=== PATIENT | female | born 1970 | race Caucasian/White ===

== ENCOUNTER 2019-11-11 00:46 | Outpatient (CLI) | payer OTHER, SELFPAY ==
[2019-11-11 19:34] LABS: SARS-CoV-2 RNA PCR Negative
== END 2019-11-11 00:47 | disposition home or self-care (01) ==
LOC: ANHCOVIDDT 00:47
PROVIDERS: PCP Family Medicine; Visit Provider Internal Medicine Gastroenterology
DX: Z01.818 Encounter for other preprocedural examination (principal); Z11.59 Encounter for screening for other viral diseases
CPT/HCPCS: 87635; C9803; U0003

== ENCOUNTER 2019-11-13 02:02 | Day surgery (SDC) | payer OTHER, SELFPAY ==
[2019-11-05 11:40] VITALS: BMI 35.9
--- NOTE | 2019-11-11 14:58 | WPDANESEPPF ---
Anes - Initial Pre Proc Eval Procedure: Operation Date: 11/13/19 11:00 Proposed Procedures p Screening Colonoscopy - Leo Corral MD Date/Time: 11/11/19 14:58 Surgeon: Leo Corral MD Pre Op Diagnosis: Neoplasm Screening Patient Data Age: 49 Gender: F Height: 1.6 m Weight: 92 kg Allergies Allergy/AdvReac Type Severity Reaction Status Date / Time No Known Allergies Allergy Verified 11/13/19 10:18 Home Medications Medication Instructions Recorded Confirmed Type atorvastatin 10 mg tablet 10 mg PO DAILY 05/13/19 11/05/19 History escitalopram oxalate 20 mg tablet 20 mg PO DAILY #90 tablet 09/16/19 11/05/19 Rx aspirin [Adult Low Dose Aspirin] 81 mg PO DAILY 11/05/19 11/05/19 History oxybutynin chloride 10 mg 10 mg PO DAILY #90 tablet 11/11/19 Rx tablet,extended release 24 hr peg 3350-electrolytes 236 240 ml PO Q10M #4000 ml 11/12/19 Rx gram-22.74 gram-6.74 gram-5.86 gram solution Patient hx anesthesia problems: none Family hx anesthesia problems: none PMFSH Past Medical History Medical History (Updated 11/11/19 @ 14:58 by Ren Kirkpatrick DO) Anxiety Depression GERD (gastroesophageal reflux disease) LISETTE (obstructive sleep apnea) Surgical History Surgical History (Updated 11/11/19 @ 14:58 by Ren Kirkpatrick DO) History of x2 Social History Social History Smoking status: Smoker, status unknown Second hand tobacco smoke exposure: No Alcohol intake: current Anes - Eval Final PreProcedure Day of Procedure 11/11/19 14:58 Patient weight: obese Heart: regular rate and rhythm Lungs: clear to auscultation and normal air movement Airway: Mallampati scale class II Neurological: alert and oriented Last oral intake: >/= 8 hours ASA classification: III Emergent: no Anesthetic plan: proceed Anesthesia type and monitoring: general GIVS and standard monitoring Informed Consent: The patient's anesthetic plan and its attendant risks and benefits were discussed with the patient/family/POA. Questions were solicited and answers provided to the satisfaction of the patient/family/POA.
[2019-11-13 10:20] VITALS: BP 118/67; PULSE 80; RESP 18; TEMP 36.4; O2SAT 97; BMI 38.7
[2019-11-13] MEDS: LACTATED RINGERS 1,000 ML 150 ML IV CONT (10:50)
--- NOTE | 2019-11-13 10:51 | PM.HPGS ---
History of Present Illness History of Present Illness Consent: Risks, benefits, and alternatives have been discussed and questions answered. Patient agrees to proceed with procedure. Chief complaint: Neoplasm Screening Narrative: Tri Tomas is a 49 year old female here for first screening colonoscopy Review of Systems Constitutional: Constitutional: Denies headache(s) and Denies weakness Eyes: Eyes: Denies blurry vision ENT: Reports Normal hearing present, Denies headache(s) and Denies neck pain Cardiovascular: Cardiovascular: Denies chest pain and Denies dyspnea Respiratory: Respiratory: Denies dyspnea Gastrointestinal: Gastrointestinal: Reports no additional gastrointestinal complaints Genitourinary: Genitourinary: Denies dysuria Musculoskeletal: Musculoskeletal: Denies neck pain Integumentary/Breasts: Skin/Breast: Denies dry skin Neurologic: Reports Normal hearing present, Denies headache(s) and Denies weakness Psychiatric: Psychiatric: Denies anxiety Endocrine: Endocrine: Denies change in body appearance Hematologic/Lymphatic: Hematologic/Lymphatic: Denies easy bleeding Allergic/Immunologic: Allergic/Immunologic: Denies urticaria PMFSH Past Medical History Medical History (Updated 11/13/19 @ 10:51 by Leo Corral MD) Anxiety Colon cancer screening Depression GERD (gastroesophageal reflux disease) LISETTE (obstructive sleep apnea) Surgical History Surgical History (Updated 11/11/19 @ 14:58 by Ren Kirkpatrick DO) History of x2 Social History Social History Smoking status: Smoker, status unknown Second hand tobacco smoke exposure: No Alcohol intake: current Meds Home Medications and Allergies Home Medications Medication Instructions Recorded Confirmed Type atorvastatin 10 mg tablet 10 mg PO DAILY 05/13/19 11/05/19 History escitalopram oxalate 20 mg tablet 20 mg PO DAILY #90 tablet 09/16/19 11/05/19 Rx aspirin [Adult Low Dose Aspirin] 81 mg PO DAILY 11/05/19 11/05/19 History oxybutynin chloride 10 mg 10 mg PO DAILY #90 tablet 11/11/19 Rx tablet,extended release 24 hr peg 3350-electrolytes 236 240 ml PO Q10M #4000 ml 11/12/19 Rx gram-22.74 gram-6.74 gram-5.86 gram solution Allergies Allergy/AdvReac Type Severity Reaction Status Date / Time No Known Allergies Allergy Verified 11/13/19 10:18 Vital Signs Vital Signs - 24 hr 11/13/19 10:20 Temperature 97.6 F Pulse Rate 80 Respiratory Rate 18 Blood Pressure 118/67 Pulse Oximetry 97 Exam Const: General: comfortable and no acute distress HENMT: General nose exam: Normal nares present Eyes: General: appearance normal, both eyes and all related structures Neck: Neck: no JVD Resp: Auscultation: clear to auscultation bilaterally Cardio: Rate: regular rate Rhythm: regular rhythm GI: Inspection: non-distended GI Palp: Yes Soft to palpation Skin: General skin exam: normal color Neuro: General: gait normal Speech: normal speech Extrem: General: normal to inspection Psych: Mental Status: mental status grossly normal Assessment and Plan Assessment and plan (1) Colon cancer screening: Code(s): Z12.11 - Encounter for screening for malignant neoplasm of colon Status: Acute Assessment and Plan: will proceed with colonoscopy (2) LISETTE (obstructive sleep apnea): Code(s): G47.33 - Obstructive sleep apnea (adult) (pediatric) Status: Acute
[2019-11-13 11:11] VITALS: BP 93/61; PULSE 70; RESP 18; O2SAT 98
[2019-11-13 11:21] VITALS: BP 100/63; PULSE 72; RESP 18; O2SAT 99
[2019-11-13 11:31] VITALS: BP 112/65; PULSE 74; RESP 20; O2SAT 100
== END 2019-11-13 12:07 | disposition home or self-care (01) ==
PROVIDERS: PCP Family Medicine; Visit Provider Internal Medicine Gastroenterology
PROC: 0DJD8ZZ Inspection of Lower Intestinal Tract, Via Natural or Artificial Opening Endoscopic (ICD-10-PCS; CPT 45378; principal; 2019-11-13 11:00)
DX: Z12.11 Encounter for screening for malignant neoplasm of colon (principal); D12.2 Benign neoplasm of ascending colon; D12.5 Benign neoplasm of sigmoid colon; K64.8 Other hemorrhoids; F41.9 Anxiety disorder, unspecified; F32.9 Major depressive disorder, single episode, unspecified; K21.9 Gastro-esophageal reflux disease without esophagitis; G47.33 Obstructive sleep apnea (adult) (pediatric); Z79.82 Long term (current) use of aspirin; Z79.899 Other long term (current) drug therapy
CPT/HCPCS: 45385; 88305; J2704; J7120

== ENCOUNTER → 2020-04-14 15:46 | Outpatient (CLI) | payer BC, SELFPAY ==
--- NOTE | ~2020-04-14 | XR_ITS ---
EXAMINATION: XR chest 2V DATE: 04/14/2020 16:03 INDICATION: Productive cough and shortness of breath TECHNIQUE: PA and lateral views of the chest were obtained. COMPARISON: Chest radiograph dated 12/04/19 FINDINGS: The lungs remain clear with no focal airspace opacities, pulmonary edema, pleural effusion or pneumot horax. The cardiomediastinal silhouette is normal. Mild thoracic spondylosis. IMPRESSION: 1. No acute cardiopulmonary disease. Reviewed, dictated and finalized at location B. EGE ATHLETE
== END ==
PROVIDERS: PCP Family Medicine; Visit Provider Family Medicine
DX: R05 Cough (principal)
CPT/HCPCS: 71046

== ENCOUNTER → 2020-06-24 10:55 | Outpatient (CLI) | payer BC, SELFPAY ==
--- NOTE | ~2020-06-24 | MM_ITS ---
EXAMINATION: MM screening [facility] w ruddy HISTORY: Screening mammogram TECHNIQUE: Craniocaudal and mediolateral oblique 3-D tomosynthesis images were obtained and synthetic 2-D images were generated. CAD analysis was submitted and interpreted. COMPARISON: 01/30/2019, 12/28/2017, 11/29/2016 bilateral digital screening mammogram examinations BREAST PARENCHYMAL COMPOSITION: There are scattered areas of fibroglandular density. FINDINGS: There is no evidence of suspicious mass, calcification, or architectural distortion to sugg est malignancy in either breast. There has been no suspicious interval change. IMPRESSION: 1. No mammographic evidence of malignancy. 2. Recommend routine screening mammography in one year. BI-RADS Category 1: Negative Reviewed, dictated and finalized at location A.
== END ==
PROVIDERS: Visit Provider Nurse Practitioner
DX: Z12.31 Encounter for screening mammogram for malignant neoplasm of breast (principal)
CPT/HCPCS: 77063; 77067

== ENCOUNTER 2021-01-01 12:13 | Outpatient (CLI) | payer BC, SELFPAY ==
--- NOTE | ~2021-01-01 | CT_ITS ---
EXAMINATION: CT abdomen pelvis wo con DATE: 01/01/2021 12:59 INDICATION: Hematuria. Left flank pain. TECHNIQUE: Computed tomography (CT) of the abdomen and pelvis was performed without intravenous contr ast. Automated exposure control and iterative reconstruction technique were employed. Exam dose: 435 .42 mGy-cm total exam DLP. COMPARISON: 01/01/2021 KUB is not available at this time 12/30/2015 CT abdomen with IV contrast material FINDINGS: The lung bases are clear of infiltrate or consolidation or mass lesion. Normal heart size. No pericardial or pleural effusion. The liver, spleen, pancreas, gallbladder, bile ducts, pancreatic duct are unremarkable. Normal morpho logy of the adrenal glands. No renal mass lesion is evident on this limited noncontrast examination. No urinary tract calculus or hydroureteronephrosis is evident. The urinary bladder is unremarkable. Uterus measures 12 cm vertica l dimension, up to 5.5 cm maximal AP dimension. Normal caliber of the abdominal aorta. No intraperitoneal or retroperitoneal or pelvic mass lesion or adenopathy or ascites. Normal appendix. No bowel obstruction, bowel wall thickening, pneumatosis or intraperitoneal free air . No significant abnormality of the skeletal structures except for bilateral hip osteoarthritis. IMPRESSION: No urinary tract calculus or hydroureteronephrosis Normal appendix Uterine enlargement Reviewed, dictated and finalized at Location A. Reviewed, dictated and finalized at location A.
--- NOTE | ~2021-01-01 | XR_ITS ---
EXAMINATION: XR abdomen/kub 1V DATE: 01/01/2021 13:07 INDICATION: Unspecified abdominal pain. TECHNIQUE: A supine view of the abdomen on 2 radiographs was obtained. COMPARISON: CT abdomen and pelvis 01/01/2021 FINDINGS: There are no dilated loops of bowel. There is a moderate volume of stool in the colon. Ther e is a staple line in the stomach. There are phleboliths in the pelvis. IMPRESSION: 1. Nonobstructive bowel gas pattern. Reviewed, dictated and finalized at location A.
[2021-01-01 12:54] LABS: Basophils Absolute Auto 0.1 K/mm3 (0.0-0.1); Eosinophils Absolute Auto 0.2 K/mm3 (0-0.3); Eosinophils Percent Auto 2.4 % (0-4.4); Hematocrit 43.5 % (37.0-47.0); Hemoglobin 14.5 g/dL (12.0-15.0); Immature Granulocyte Absolute 0.06 K/mm3 (0.00-0.031); Immature Granulocyte Percent A 0.8 % (0-0.5); Lymphocytes Absolute Auto 2.65 K/mm3 (0.9-3.2); Lymphocytes Percent Auto 33.2 % (18.3-44.2); Mean Corpuscular HGB Conc 33.3 g/dl (32-36); Mean Corpuscular Hemoglobin 31.4 pg (26-34); Mean Corpuscular Volume 94.2 fl (80-100); Mean Platelet Volume 9.8 fl (7.4-10.4); Monocytes Absolute Auto 0.6 K/mm3 (0.1-0.6); Monocytes Percent Auto 7.4 % (2.6-8.5); Neutrophils Absolute Auto 4.4 K/mm3 (1.3-6.7); Neutrophils Percent Auto 55.2 % (45.5-73.1); Platelet Count Result 232 k/mm3 (150-375); Red Blood Count 4.62 M/mm3 (4.2-5.4); Red Cell Distribution Width 13.2 % (11.5-14.5)
[2021-01-01 13:53] LABS: Anion Gap 8 mmol/L (8-16); Blood Urea Nitrogen 8 mg/dL (7-17); Carbon Dioxide 26 mmol/L (22-30); Chloride 106 mmol/L (98-107); Estimated Glomerular Filt Rate > 60; Glucose 167 mg/dL (65-110); Potassium 4.1 mmol/L (3.4-5.0); Sodium 140 mmol/L (137-145)
== END 2021-01-01 12:14 | disposition home or self-care (01) ==
PROVIDERS: PCP Family Medicine; Visit Provider Nurse Practitioner Family
DX: R10.9 Unspecified abdominal pain (principal); R31.29 Other microscopic hematuria; R31.9 Hematuria, unspecified
CPT/HCPCS: 36415; 74018; 74176; 80048; 85025

== ENCOUNTER → 2021-01-29 10:26 | Outpatient (CLI) | payer BC, SELFPAY ==
--- NOTE | ~2021-01-29 | US_ITS ---
EXAMINATION: US transvaginal DATE: 01/29/2021 11:08 INDICATION: Pelvic pain Comparison:11/29/2016 TECHNIQUE: Multiple endovaginal sonographic images of the pelvis performed. FINDINGS: The uterus measures 9.6 x 4.8 x 6.3 cm. The endometrial complex measures 3 mm. The right ovary is not visualized. Left ovary measures 2.9 x 2.2 x 2.2 cm. There are follicular lopez es of the left ovary. There is no free fluid in the pelvis. There are no abnormal masses seen on either side. IMPRESSION: 1. Unremarkable pelvic ultrasound Reviewed, dictated and finalized at location A. ICAL CARE NURSE PRACTITIONER
== END ==
PROVIDERS: PCP Family Medicine; Visit Provider Obstetrics & Gynecology Gynecology
DX: R10.2 Pelvic and perineal pain (principal)
CPT/HCPCS: 76830

== ENCOUNTER → 2021-05-06 10:09 | Outpatient (CLI) | payer BC, SELFPAY ==
--- NOTE | ~2021-05-06 | XR_ITS ---
XR chest 2V DATE: 05/06/2021 10:21 INDICATION: Shortness of breath, chest tightness. Covid infection 1 month ago. TECHNIQUE: 2 views COMPARISON: 12/04/2019 PA chest FINDINGS: Normal heart size. No hilar or mediastinal enlargement. No pulmonary infiltrate or consolid ation, pleural effusion or pulmonary vascular congestion or pneumothorax. IMPRESSION: No active cardiopulmonary disease Reviewed, dictated and finalized at location B. E LEAD
== END ==
PROVIDERS: PCP Family Medicine; Visit Provider Nurse Practitioner Family
DX: R06.02 Shortness of breath (principal)
CPT/HCPCS: 71046

== ENCOUNTER → 2021-05-17 12:57 | Outpatient (CLI) | payer BC, SELFPAY ==
--- NOTE | ~2021-05-17 | CT_ITS ---
EXAMINATION: CT diagnostic chest wo con EXAM DATE: 05/17/2021 13:22 INDICATION: R06.02 - Shortness of breath. History of COVID March 2021 TECHNIQUE: Spiral CT of the chest without contrast. Axial, coronal and sagittal images of the chest were reviewed. Coronal maximum intensity pixel images of chest reviewed. The dose-length product ( DLP) for this examination was 556.69 mGy-cm. The exposure was tailored according to patient size (au to mA exposure control), and iterative reconstruction (ASIR) was used as additional dose reduction te chnique. There is no prior study for comparison. FINDINGS: The lungs are clear. There are no pleural or pericardial effusions. In the dependent a spect of the galilea there are several septations, and some dependent more focal opacity most likely m ucous. There is no mediastinal, hilar or axillary lymphadenopathy. There is no pneumothorax. Hea rt normal in size. No evidence of coronary arterial calcification. Upper abdomen is unremarkable. There is mild thoracic spondylosis without osteoblastic or osteolytic lesions identified. IMPRESSION: Carinal dependent opacity and couple of septations probably transient mucous. Exam otherw ise unremarkable. Recommend 3 month follow-up chest CT. Reviewed, dictated and finalized at location G. FIGHTER IMPRESSION: Carinal dependent opacity and couple of septations probably transie nt mucous. Exam otherwise unremarkable. Recommend 3 month follow-up chest CT.
== END ==
PROVIDERS: Visit Provider Nurse Practitioner Family
DX: R06.02 Shortness of breath (principal); R53.83 Other fatigue; Z72.0 Tobacco use; Z68.38 Body mass index [BMI] 38.0-38.9, adult
CPT/HCPCS: 71250

== ENCOUNTER → 2021-10-04 10:21 | Outpatient (CLI) | payer BC, SELFPAY ==
--- NOTE | ~2021-10-04 | CT_ITS ---
EXAMINATION:CT diagnostic chest wo con DATE: 10/04/2021 10:33 INDICATION: Tracheal mass. TECHNIQUE: Computed tomography (CT) of the chest was performed without intravenous contrast. Automate d exposure control and iterative reconstruction technique were employed. The dose-length product (DLP ) was 122.92 mGy-cm. COMPARISON: Chest CT 05/17/2021 FINDINGS: There is no pneumonia or pleural effusion. There is trace mucus in the trachea with improve ment from 05/17/2021. The heart size is normal. No pericardial effusion. There are surgical changes of the stomach. There is mild thoracic spondylosis. IMPRESSION: 1. No abnormal tracheal mass. Reviewed, dictated and finalized at location A.
== END ==
PROVIDERS: PCP Family Medicine; Visit Provider Nurse Practitioner Family
DX: R91.8 Other nonspecific abnormal finding of lung field (principal); M47.814 Spondylosis without myelopathy or radiculopathy, thoracic region
CPT/HCPCS: 71250

== ENCOUNTER → 2021-10-26 09:37 | Outpatient (CLI) | payer BC, SELFPAY ==
--- NOTE | ~2021-10-26 | MM_ITS ---
EXAMINATION: MM screening [facility] BI w ruddy HISTORY: Screening mammogram TECHNIQUE: Craniocaudal and mediolateral oblique 3-D tomosynthesis images were obtained and synthetic 2-D images were generated. CAD analysis was submitted and interpreted. COMPARISON: 06/24/2020, 01/30/2019, 12/28/2017 BREAST PARENCHYMAL COMPOSITION: There are scattered areas of fibroglandular density. FINDINGS: There is no suspicious mass, calcification, or architectural distortion to suggest malignan cy in either breast. There has been no suspicious interval change. IMPRESSION: 1. No mammographic evidence of malignancy. 2. Recommend routine screening mammography in one year. BI-RADS Category 1: Negative Reviewed, dictated and finalized at location A.
== END ==
PROVIDERS: PCP Family Medicine; Visit Provider Obstetrics & Gynecology Gynecology
DX: Z12.31 Encounter for screening mammogram for malignant neoplasm of breast (principal)
CPT/HCPCS: 77063; 77067

== ENCOUNTER → 2022-10-28 08:18 | Outpatient (CLI) | payer BC, SELFPAY ==
--- NOTE | ~2022-10-28 | XR_ITS ---
Clinical Indication: Cough PA and lateral views of the chest: Comparison: 05/06/2021 Findings: The lungs are clear, without evidence of focal consolidation or pleural effusion. Cardiome diastinal silhouette is within normal limits. Bones and soft tissues are unremarkable. Impression: Normal chest. Reviewed, dictated and finalized at location . Impression: Normal chest.
== END ==
PROVIDERS: PCP Nurse Practitioner Family; Visit Provider Nurse Practitioner Family
DX: R05.9 Cough, unspecified (principal)
CPT/HCPCS: 71046

== ENCOUNTER → 2022-11-14 12:30 | Outpatient (CLI) | payer BC, SELFPAY ==
--- NOTE | ~2022-11-14 | MM_ITS ---
EXAMINATION: MM screening [facility] BI w ruddy HISTORY: Screening mammogram TECHNIQUE: Craniocaudal and mediolateral oblique 3-D tomosynthesis images were obtained and synthetic 2-D images were generated. CAD analysis was submitted and interpreted. COMPARISON: 10/26/2021, 06/24/2020, 01/30/2019 BREAST PARENCHYMAL COMPOSITION: There are scattered areas of fibroglandular density. FINDINGS: No suspicious mass, calcification, or architectural distortion are identified in either julio ast to suggest malignancy. There has been no suspicious interval change. IMPRESSION: 1. No mammographic evidence of malignancy. 2. Recommend routine screening mammography in one year. BI-RADS Category 1: Negative Reviewed, dictated and finalized at location A.
== END ==
PROVIDERS: PCP Obstetrics & Gynecology Gynecology; Visit Provider Obstetrics & Gynecology Gynecology
DX: Z12.31 Encounter for screening mammogram for malignant neoplasm of breast (principal)
CPT/HCPCS: 77063; 77067

== ENCOUNTER 2023-01-18 10:29 | Outpatient (CLI) | payer BC, SELFPAY ==
--- NOTE | ~2023-01-18 | DEXA_ITS ---
Bone Density Report Name: WILLIAMS DEVINE Age: 52 Sex: Female Ethnicity: White Date of : 1970 Indication: postmenopausal; screening for osteoporosis; Referring Provider: Layo, Savanna Study: Bone densitometry was performed. Exam Date: January 18, 2023 Accession number: [id number] Bone Density: Region BMD T-score Z-score Classification AP Spine(L1-L4) 1.144 0.9 1.9 Normal Femoral Neck (Left) 0.835 -0.1 0.9 Normal Total Hip (Left) 0.930 -0.1 0.6 Normal Femoral Neck (Right) 0.829 -0.2 0.8 Normal Total Hip (Right) 0.944 0.0 0.7 Normal Femoral Neck Mean 0.832 -0.2 0.9 Normal Total Hip Mean 0.937 0.0 0.6 Normal World Health Organization criteria for BMD impression classify patients as: Normal (T-score at or above -1.0), Osteopenia (T-score between -1.0 and -2.5), or Osteoporosis (T-score at or below -2.5). 10-year Fracture Risk: FRAX not reported because: All T-scores for Spine Total, Hip Total, Femoral Neck at or above -1.0 Clinical Information Provided by Patient: Smokes Has used the following medications: Vitamin D Patient maximum height was 63 Menopause Age: 51 No regular weight bearing exercise Drinks caffeinated beverages Onset of menses at age 10 Number of children 2 Impression: The patient has normal bone mass. The patient has risk factors, including: smoking. Discussion: BONE DENSITY IS ABOVE THE MINIMUM DESIRABLE LEVEL AT ALL SKELETAL SITES TESTED. This patient?s bone mineral density is above the minimum desirable level (T-score -1.0 or better) at all sites measured. The patient should follow a healthful lifestyle (good nutrition with adequate calcium and vitamin D, and appropriate weight-bearing exercise). Follow-Up: Consider repeating this study in 5 years or sooner if there is some new clinical indication. Reported by: Dr. Darrian Bedolla on 01/18/2023 10:52:00 AM. Reviewed, dictated and finalized at location A. [facility]
== END 2023-01-18 10:30 | disposition home or self-care (01) ==
LOC: CHSIMG 10:31
PROVIDERS: PCP Family Medicine; Visit Provider Nurse Practitioner
DX: Z78.0 Asymptomatic menopausal state (principal)
CPT/HCPCS: 77080

== ENCOUNTER 2023-07-20 09:47 | Outpatient (CLI) | payer BC, SELFPAY ==
--- NOTE | ~2023-07-20 | CT_ITS ---
EXAMINATION: CT lung screening DATE: 07/20/2023 10:00 INDICATION: Personal history of nicotine TECHNIQUE: Computed tomography (CT) of the chest was performed without intravenous contrast. The dose -length product was 126.22 mGy-cm. Automated exposure control and iterative reconstruction technique were employed. COMPARISON: CT dated 10/04/2021 FINDINGS: Heart size normal. No thoracic lymphadenopathy. No significant pleural or pericardial effus ion. No focal soft tissue abnormality. Upper abdomen is unremarkable. No significant vascular abnorma lity. Mild thoracic spondylosis. No focal airspace consolidation. No pneumothorax. No suspicious pulm onary nodules or masses. IMPRESSION: 1. Lung-RADS category 1: Negative. Continue annual screening with noncontrast low-dose chest CT in 12 months. Reviewed, dictated and finalized at location B. IMPRESSION: 1. Lung-RADS category 1: Negative. Continue annual screening with noncontrast l ow-dose chest CT in 12 months.
== END 2023-07-20 09:48 ==
LOC: MICIMG 09:47
PROVIDERS: PCP Family Medicine; Visit Provider Nurse Practitioner Family
DX: Z12.2 Encounter for screening for malignant neoplasm of respiratory organs (principal); Z87.891 Personal history of nicotine dependence
CPT/HCPCS: 71271

== ENCOUNTER → 2023-07-21 08:58 | Outpatient (CLI) | payer BC, SELFPAY ==
--- NOTE | ~2023-07-21 | XR_ITS ---
XR shoulder LT min 2V 07/21/2023 09:13 Indication: Left shoulder pain Procedure: 5 views left shoulder Comparison: No prior studies for comparison. Findings: There is moderate polyarticular osteoarthritis of the left shoulder. No fracture, subluxati on or dislocation. Normal mineralization. No soft tissue abnormality. 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 Reviewed, dictated and finalized at location B. 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
== END ==
LOC: EXPTRAD 09:00
PROVIDERS: PCP Nurse Practitioner Family; Visit Provider Nurse Practitioner Family
DX: M25.612 Stiffness of left shoulder, not elsewhere classified (principal); M19.012 Primary osteoarthritis, left shoulder
CPT/HCPCS: 73030

== ENCOUNTER 2024-01-03 09:56 | Outpatient (CLI) | payer BC, SELFPAY ==
--- NOTE | ~2024-01-03 | MM_ITS ---
EXAMINATION: MM screening [facility] BI w ruddy HISTORY: Screening TECHNIQUE: Craniocaudal and mediolateral oblique 3-D tomosynthesis images were obtained and synthetic 2-D images were generated. CAD analysis was submitted and interpreted. COMPARISON: Comparison to multiple prior studies sequentially, with oldest reviewed study dated 11/29. BREAST PARENCHYMAL COMPOSITION: Not dense: There are scattered areas of fibroglandular density. FINDINGS: There is no evidence of suspicious mass, calcification, or architectural distortion to sugg est malignancy in either breast. There has been no suspicious interval change. IMPRESSION: 1. No mammographic evidence of malignancy. 2. Recommend routine screening mammography in one year. BI-RADS Category 1: Negative Reviewed, dictated and finalized at location B.
== END 2024-01-03 09:57 | disposition home or self-care (01) ==
PROVIDERS: PCP Family Medicine; Visit Provider Nurse Practitioner
DX: Z12.31 Encounter for screening mammogram for malignant neoplasm of breast (principal)
CPT/HCPCS: 77063; 77067

== ENCOUNTER → 2024-04-16 11:32 | Outpatient (CLI) | payer BC, SELFPAY ==
--- NOTE | ~2024-04-16 | XR_ITS ---
EXAMINATION: XR chest 2V 04/16/2024 13:05 INDICATION: Cough PROCEDURE: 2 view chest COMPARISON: Comparison to multiple prior studies sequentially, with oldest reviewed study dated 09/26. FINDINGS: The lungs are clear. The cardiomediastinal silhouette is within normal limits. There are no pleural effusions. There is no pneumothorax suspected. IMPRESSION: 1: NO ACUTE CARDIOPULMONARY DISEASE. Reviewed, dictated and finalized at location A. MENT MASON
--- OUTSIDE RECORDS SUMMARY | 2024-04-16 12:44 | XMS_ITS | Clinical Summary ---
Author Organization [facility] Address [address] [place] [address]. [place] [address] [place] [address] Care Team Providers Care Emr Specialist Name Role Phone Gunnar Madera MD Primary Care Provider [phone] Allergies No known active allergies Medications escitalopram 20 MG tablet Take 20 mg by mouth daily. Active oxybutynin XL 10 MG 24 hr tablet Take 10 mg by mouth daily. Active atorvastatin 10 MG tablet Take 10 mg by mouth nightly at bedtime. Active aspirin EC (ASPIRIN EC) 81 MG tablet Take 81 mg by mouth daily. Active omeprazole 20 MG capsule Take 20 mg by mouth daily. Active guaifenesin-cod eine 100-10 MG/5ML syrupIndication s:Cough Take 5 mLs by mouth every 4 (four) hours as needed for Cough. Indications: Cough Hold from taking this medication if feeling sleepy. When taking this medication, do not drink alcohol, operate heavy machinery or automobiles. 180 mL 0 Active Social History Tobacco Use Types Packs/Day Years Used Date Smoking Tobacco: Every Day Cigarettes Smokeless Tobacco: Never Alcohol Use Standard Drinks/Week Comments Yes 0 (1 standard drink = 0.6 oz pur e alcohol) Comments No Sex and Gender Information Value Date Recorded Sex Assigned at Not on file Legal Sex Female 6:23 PM CDT Gender Identity Not on file Sexual Orientation Not on file Last Filed Vital Signs Vital Sign Reading Time Taken Comments Blood Pressure 122/76 06/03/2019 9:15 AM CDT Pulse 77 06/03/2019 9:15 AM CDT Temperature 37.4 ??C (99.4 ??F) 06/03/2019 9:15 AM CD T Respiratory Rate 20 06/03/2019 9:15 AM CDT Oxygen Saturation 99% 06/03/2019 9:15 AM CDT Inhaled Oxygen Concentration - - Weight 95.3 kg (210 lb) 06/03/2019 9:15 AM CDT Height 160 cm (5' 3 ) 06/03/2019 9:15 AM CDT Body Mass Index 37.2 06/03/2019 9:15 AM CDT Plan of Treatment Health Maintenance Due Date Last Done Comments Cervical Cancer Screening Pa p Smear (Age 30 to 64) Every 3 Years 1968 Colorectal Cancer Screening Colonoscopy (10 Years) 1968 Annual Physical 07/02/1971 Pneumococcal Vaccine: Pediat rics (0 to 5 Years) and At-Risk Patients (6 to 64 Years) (1 of 2 - PCV) 1974 Hepatitis C 1986 DTaP, Tdap and Td Vaccines ( 1 - Tdap) 07/02/1987 Hepatitis B Vaccines (1 of 3 - 19+ 3-dose series) 07/02/1987 Cervical Cancer Screening Pa p with HPV Testing (Age 30 to 64) Every 5 Years 1998 Cervical Cancer Screening with HPV 1998 Mammogram Screening 2008 Zoster Vaccines (1 of 2) 2018 COVID-19 Vaccine (2023-2 5 season) 2023 Influenza Adult (#1) 2023 Meningococcal B Vaccine Aged Out No l onger eligible based on patient's age to complete this topic Meningococcal Vaccine Aged Out No micky latanya eligible based on patient's age to complete this topic RSV Immunizations Under 20 Months Aged Out No longer eligible based on patient's age to complete this topic Insurance [facility] Care Teams Emr Specialist Relationship Specialty Start Date End Date Gunnar Madera MD [address] [address] PCP - General FAMILY PRACTICE 06/03/19
== END ==
LOC: EXPTRAD 11:33
DX: R05.9 Cough, unspecified (principal); Z20.828 Contact with and (suspected) exposure to other viral communicable diseases
CPT/HCPCS: 71046

== ENCOUNTER 2024-11-11 10:25 | Outpatient (CLI) | payer BC, SELFPAY ==
--- NOTE | ~2024-11-11 | CT_ITS ---
EXAMINATION: CT lung screening DATE: 11/11/2024 10:41 INDICATION: Tobacco use TECHNIQUE: Computed tomography (CT) of the chest was performed without intravenous contrast. The dose-length product was 127.83 mGy-cm. COMPARISON: 07/20/2023 FINDINGS: No enlarged mediastinal, hilar lymph nodes. Heart is not enlarged. Abdominal aorta is not aneurysmal. Thoracic aorta is not aneurysmal. Tracheobronchial tree is patent. No pneumothorax. No pleural effusion. No pulmonary mass. No pulmonary nodules. Mild multilevel degenerative change in the visualized spine. IMPRESSION: 1. Lung-RADS category 1: Negative. Continue annual screening with noncontrast low-dose chest CT in 12 months. Reviewed, dictated and finalized at location Q. IMPRESSION: 1. Lung-RADS category 1: Negative. Continue annual screening with noncontrast l ow-dose chest CT in 12 months.
== END 2024-11-11 10:26 | disposition home or self-care (01) ==
LOC: MICIMG 10:27
PROVIDERS: PCP Family Medicine
DX: Z12.2 Encounter for screening for malignant neoplasm of respiratory organs (principal); Z87.891 Personal history of nicotine dependence
CPT/HCPCS: 71271

== ENCOUNTER → 2024-12-30 08:55 | Outpatient (CLI) | payer BC, SELFPAY ==
--- NOTE | ~2024-12-30 | XR_ITS ---
EXAMINATION: XR abdomen/kub 1V, 12/30/2024 9:08 CDT HISTORY: R31.29 - Other microscopic hematuria, RT FLANK PAIN COMPARISON: No comparisons available. Technique: 3 view. Findings: Bowel content obscures evaluation however there are probable renal calculi the largest right superior pole 4 mm, the largest left superior pole 4 mm. No free air. No abnormal calcifications No acute osseous abnormality. Impression: 1. No acute abnormality. Reviewed, dictated and finalized at location P. Impression: 1. No acute abnormality.
--- OUTSIDE RECORDS SUMMARY | 2024-12-30 09:21 | XMS_ITS | Clinical Summary ---
Author Organization [facility] Address [facility] [place] [address] Care Team Providers Care Perioperative Assistant Name Role Phone Gunnar Madera MD Primary Care Provider [phone] Allergies No known active allergies Medications escitalopram [...] 77 06/03/2019 9:15 AM CDT Temperature 37.4 C (99.4 F) 06/03/2019 9:15 AM CDT Respiratory Rate 20 06/03/2019 9:15 AM CDT Oxygen Saturation 99% 06/03/2019 9:15 AM CDT Inhaled Oxygen Concentration - - Weight 95.3 kg (210 lb) 06/03/2019 9:15 AM CDT Height 160 cm (5' 3) 06/03/2019 9:15 AM CDT Body Mass Index 37.2 06/03/2019 9:15 AM CDT Plan of Treatment Health Maintenance Due Date Last Done Comments Cervical Cancer Screening Pa p Smear (Age 30 to 64) Every 3 Years 1968 Colorectal Cancer Screening Colonoscopy (10 Years) 1968 Annual Physical 07/02/1971 Hepatitis C 1986 DTaP, Tdap and Td Vaccines ( 1 - Tdap) 07/02/1987 Hepatitis B Vaccines (1 of 3 - 19+ 3-dose series) 07/02/1987 Pneumococcal Vaccine: 50+ Ye ars (1 of 2 - PCV) 07/02/1987 Cervical Cancer Screening Pa p with HPV Testing (Age 30 to 64) Every 5 Years 1998 Cervical Cancer Screening with HPV 1998 Mammogram Screening 2008 Zoster Vaccines (1 of 2) 2018 COVID-19 Vaccine (2023-2 5 season) 2024 Influenza Adult (#1) 2024 Meningococcal B Vaccine Aged Out No l onger eligible based on patient's age to complete this topic Meningococcal Vaccine Aged Out No micky latanya eligible based on patient's age to complete this topic RSV Immunizations Under 20 Months Aged Out No longer eligible based on patient's age to complete this topic Insurance [employer] Care Teams Perioperative Assistant Relationship Specialty Start Date End Date Gunnar Madera MD [address] [place], [place] [id number] PCP - General FAMILY PRACTICE 06/03/19
== END ==
LOC: EXPTRAD 08:58
PROVIDERS: PCP Family Medicine; Referring Provider Family Medicine; Visit Provider Nurse Practitioner Family
DX: R31.29 Other microscopic hematuria (principal)
CPT/HCPCS: 74018

== ENCOUNTER 2024-12-30 15:22 | Outpatient (CLI) | payer BC, SELFPAY ==
--- NOTE | ~2024-12-30 | CT_ITS ---
EXAMINATION: CT abdomen pelvis wo con DATE: 12/30/2024 15:37 INDICATION: Other microscopic hematuria. Kidney stone. TECHNIQUE: Computed tomography (CT) of the abdomen and pelvis was performed without intravenous contrast. Automated exposure control and iterative reconstruction technique were employed. The dose-length product was 615.15 mGy-cm. COMPARISON: CT abdomen and pelvis 01/01/2021 FINDINGS: The visualized portions of the lung bases demonstrate a few pulmonary nodules measuring up to 4 mm, likely benign. No pleural effusion. The heart size is normal. No pericardial effusion. The liver, gallbladder, spleen, pancreas, adrenal glands, and kidneys are normal. There is no urolithiasis. The appendix is normal. There are no dilated loops of bowel. 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 There is a supraumbilical ventral hernia containing fat. There are no pathologically enlarged lymph nodes. There is no free intraperitoneal fluid. There is mild thoracic and lumbar spondylosis. IMPRESSION: 1. No urolithiasis. Reviewed, dictated and finalized at location E. IMPRESSION: 1. No urolithiasis.
== END 2024-12-30 15:23 | disposition home or self-care (01) ==
LOC: MICIMG 15:22
PROVIDERS: PCP Family Medicine; Visit Provider Nurse Practitioner Family
DX: R31.29 Other microscopic hematuria (principal); N20.0 Calculus of kidney
CPT/HCPCS: 74176

== ENCOUNTER 2025-01-09 10:03 | Outpatient (CLI) | payer BC, SELFPAY ==
--- NOTE | ~2025-01-09 | MM_ITS ---
EXAMINATION: MM screening [facility] BI w ruddy HISTORY: Screening TECHNIQUE: Craniocaudal and mediolateral oblique 3-D tomosynthesis images were obtained and synthetic 2-D images were generated. CAD analysis was submitted and interpreted. COMPARISON: Comparison to multiple prior studies sequentially, with oldest reviewed study dated 12/28/2017. BREAST PARENCHYMAL COMPOSITION: Not dense: There are scattered areas of fibroglandular density. FINDINGS: There is no evidence of suspicious mass, calcification, or architectural distortion to suggest malignancy in either breast. There has been no suspicious interval change. IMPRESSION: 1. No mammographic evidence of malignancy. 2. Recommend routine screening mammography in one year. BI-RADS Category 1: Negative Reviewed, dictated and finalized at location O.
== END 2025-01-09 10:04 | disposition home or self-care (01) ==
LOC: MICIMG 10:04
PROVIDERS: PCP Family Medicine; Visit Provider Nurse Practitioner
DX: Z12.31 Encounter for screening mammogram for malignant neoplasm of breast (principal)
CPT/HCPCS: 77063; 77067